=== PATIENT | male | born 1995 | race Caucasian/White ===

== ENCOUNTER 2017-08-04 03:51 | Emergency (ER) | payer BC ==
[~2017-08-04] VITALS: Ht 180.3 cm; Wt 72.6 kg
[2017-08-04] MEDS ORDERED: IBUP100T52 PO (03:59)
[2017-08-04] MEDS ORDERED: NS(*) 0.9% 1000 ML BAG 1,000 ML IV ONE (04:02)
--- NOTE | 2017-08-04 04:03 | ER Report ---
History and Physical Time Seen By MD: 03:57 HPI/ROS CHIEF COMPLAINT: Headache HISTORY OF PRESENT ILLNESS: 22-year-old male with history of migraines states she gets migraines every time presents with a migraine-like headache, described as sharp pain behind the R eye. + aura preceeding; no known predisposing factors or triggers. No neuro deficits. No fevers. REVIEW OF SYSTEMS: Respiratory: No cough, no dyspnea. Cardiovascular: No chest pain, no palpitations. Gastrointestinal: No vomiting, no abdominal pain. Musculoskeletal: No back pain. Allergies: Coded Allergies: amoxicillin (Verified Allergy, Intermediate, 08/04/17) Home Meds Reported Medications Ibuprofen (ADVIL) 100 Mg Tab.chew, 2 TAB PO Q6-8H, TAB.CHEW 08/04/17 Constitutional Vital Sign - Last 24 Hours 08/04/17 08/04/17 03:59 05:18 Temp 97.8 Pulse 76 Resp 20 B/P (MAP) 130/71 Pulse Ox 100 O2 Delivery Room Air O2 Flow Rate 15.0 Physical Exam General Appearance: The patient is alert, has no immediate need for airway protection and no current signs of toxicity. Appears to be in moderate-to- severe pain. Eyes: Pupils equal and round no injection. Respiratory: Chest is non tender, lungs are clear to auscultation. Cardiac: regular rate and rhythm no murmurs gallops or rubs Gastrointestinal: Abdomen is soft and non tender, no masses, bowel sounds normal. Musculoskeletal: Neck: Neck is supple and non tender. Extremities have full range of motion and are non tender. Skin: No rashes or lesions. Neuro, normal gross exam DIFFERENTIAL DIAGNOSIS: After history and physical exam differential diagnosis was considered for migraine, headache, cluster, no signs of subarachnoid, subdural, mass effect, aneurysm Medical Decision Making ED Course/Re-evaluation ED Course Plan of care agreed-upon prior to orders placed Re-evaluation Feeling much better and stated he discharged after oxygen therapy Decision to Disposition Date: Aug 04, 2017 Decision to Disposition Time: 05:59 Depart Departure Latest Vital Signs Vital Signs Date Time Temp Pulse Resp B/P (MAP) Pulse Ox O2 Delivery O2 Flow Rate FiO2 08/04/17 05:18 15.0 08/04/17 03:59 97.8 76 20 130/71 100 Room Air Impression: Primary Impression: Cluster headache Condition: Improved Disposition: HOME OR SELF-CARE Patient Instructions: Cluster Headache (ED) Problem Qualifiers Primary Impression: Cluster headache Headache chronicity pattern: episodic headache Intractability: not intractable Qualified Codes: G44.019 - Episodic cluster headache, not intractable SARAN KEY MD Aug 04, 2017 04:03
[2017-08-04] MEDS ORDERED: diphenhydrAMINE 50 MG/ML VIAL ONE (04:05)
[2017-08-04] MEDS ORDERED: diphenhydrAMINE 50 MG/ML VIAL IVP ONE (04:05)
[2017-08-04] MEDS ORDERED: METOCLOPRAMIDE 10 MG/2 ML SDV ONE (04:05)
[2017-08-04] MEDS ORDERED: METOCLOPRAMIDE 10 MG/2 ML SDV IVP ONE (04:05)
[2017-08-04] MEDS ORDERED: ONDANSETRON 4 MG/2 ML VIAL ONE (04:30)
[2017-08-04 05:58] VITALS: BP 113/64
== END 2017-08-04 06:19 | disposition home or self-care (01) ==
LOC: ER 04:02
DX: G44.019 Episodic cluster headache, not intractable (principal)
CPT/HCPCS: 96361; 96374; 96375; 99282; J1200; J2405; J2765; J7030